=== PATIENT | male | born 1945 | race Caucasian/White ===

== ENCOUNTER 2017-05-12 00:35 | Inpatient (IN) | payer MEDICARE ==
[2017-05-12] MEDS ORDERED: SODIUM CHLORIDE 0.9% (FLUSH) 10 ML SYG IV PRN (00:54)
[2017-05-12] MEDS ORDERED: IPRATROPIUM/ALBUTEROL 3 ML VIAL NEB ONE ×2 (00:55→04:26)
--- NOTE | 2017-05-12 01:13 | RAD ---
EXAM: Single view chest. INDICATION: Trouble breathing. COMPARISON: Chest x-ray: None. FINDINGS: There are diffuse interstitial and airspace opacities. The heart is at the upper limit of normal in size. There is no pneumothorax. Small pleural effusions may be present. An aortic stent graft is noted. IMPRESSION: Diffuse interstitial and airspace opacities, likely representing pulmonary edema and/or pneumonia Electronically signed by: Denis Santamaria MD 05/12/2017 1:11 AM CDT Workstation: [id number]
[2017-05-12] MEDS ORDERED: methylPREDNISolone SODIUM SUC 125 MG/2 ML VIAL IV ONE (01:22)
[2017-05-12] MEDS ORDERED: SODIUM CHLORIDE 0.9% 1000ML 1,000 ML ONE (02:49)
[2017-05-12] MEDS ORDERED: SODIUM CHLORIDE 0.9% 1000ML 1,000 ML IVS ONE (02:54)
--- NOTE | 2017-05-12 04:01 | CT ---
EXAM: CT chest angiogram with contrast. INDICATION: Difficulty breathing. TECHNIQUE: Contiguous axial CT images of the chest. Intravenous contrast: Present. Protocol: Pulmonary embolus (PE) protocol angiogram. Reformats: MIPs and MPRs created and utilized. This exam was performed according to our departmental dose-optimization program, which includes automated exposure control, adjustment of the mA and/or kV according to patient size and/or use of iterative reconstruction technique. Note: LV=left ventricle. RV=right ventricle. COMPARISON: None. FINDINGS: Upper abdomen: Partially imaged. There is a partially visualized hypodense mass measuring 4.5 x 5.5 cm with peripheral and internal calcifications just posterior to the IVC. Thoracic aorta: A stent graft is noted within the descending thoracic aorta. Heart: No right atrial thrombus. RV/LV ratio: Within normal limits. Pulmonary arteries: Technical: Adequate opacification to the level of the segmental vessels. Pulmonary embolus: No low-density filling defect to suggest acute PE. Overall embolic burden: None. Mediastinum: No pathologic sized middle mediastinal lymphadenopathy. Tracheobronchial tree: Unremarkable. Lungs: Lobar consolidation: There are diffuse and patchy groundglass opacities with interstitial thickening. Pleural effusion: Negative. Pneumothorax: Negative. Other: Negative. Bones: Unremarkable. IMPRESSION: 1. No CT evidence of acute PE. 2. Diffuse and patchy groundglass opacities with interstitial thickening, likely representing pulmonary edema and/or pneumonia. 3. Coronary artery disease. 4. Partially visualized hypodense mass with peripheral and internal calcifications just posterior to the IVC and to the right of the abdominal aorta. Further evaluation with a dedicated CT of the abdomen and pelvis may be useful. Electronically signed by: Denis Santamaria MD 05/12/2017 3:59 AM CDT Workstation: [id number]
--- NOTE | 2017-05-12 04:10 | ED.PDOC ---
History of Present Illness - General Chief Complaint: Respiratory Problem Stated Complaint: trouble breathing, asthma Time Seen by Provider: 05/12/17 01:21 Source: patient, RN notes reviewed, family - Exam Limitations: no limitations - History of Present Illness Timing/Duration: 1-3 hours Severity: moderate Activities at Onset: rest Possible Cause: occasional episodes Worsening Factors: nothing Associated Symptoms: denies symptoms Respiratory Risk Factors: other - history of asthma Allergies/Adverse Reactions: Allergies NO KNOWN ALLERGY Allergy (Verified 05/12/17 00:51) Review of Systems - Review of Systems Constitutional: States: no symptoms reported EENTM: States: no symptoms reported Respiratory: States: see HPI Cardiology: States: no symptoms reported Gastrointestinal/Abdominal: States: no symptoms reported Genitourinary: States: no symptoms reported Musculoskeletal: States: no symptoms reported Skin: States: no symptoms reported Neurological: States: no symptoms reported Endocrine: States: no symptoms reported Past Medical History (General) - Patient Medical History Hx Asthma: Yes Hx Cardiac Disorders: Yes - stents, aneurysm, a-fib, aflutter Hx Congestive Heart Failure: No Hx Hypertension: Yes Hx Cancer: Yes - Ear Surgical History: other - foot surgery ,stent placement thoracic aorta - Vaccination History Hx Tetanus, Diphtheria Vaccination: No Hx Influenza Vaccination: No Hx Pneumococcal Vaccination: No - Social History Hx Tobacco Use: Yes Hx Alcohol Use: No - Female History Patient is a Female of Child Bearing Age (10 -59 yrs old): No Patient : No Family Medical History - Family History Mother Family History: Unknown Hx Family Asthma: Yes - COPD-DAD Hx Family;Other: copd -dad Physical Exam - Physical Exam General Appearance: Alert, Anxious, No apparent distress Eyes, Ears, Nose, Throat Exam: PERRL/EOMI, normal ENT inspection, TMs normal Neck: non-tender, full range of motion, normal inspection Respiratory: chest non-tender, decreased breath sounds, rhonchi Cardiovascular/Chest: normal peripheral pulses, regular rate, rhythm, no murmur Peripheral Pulses: radial,right: 1+, radial,left: 1+ Gastrointestinal/Abdominal: normal bowel sounds, non tender, soft, no organomegaly Extremity: normal range of motion, non-tender, no calf tenderness, pedal edema - 1 + Neurologic: alert, normal mood/affect, oriented x 3 Skin Exam: normal color, warm/dry Lymphatic: no adenopathy Progress - Progress Progress: 05/12/17 04:21 Vital Signs - 8 hr 05/12/17 05/12/17 05/12/17 00:51 01:00 01:46 Temperature 98.7 F Pulse Rate 95 H Pulse Rate [ 101 H 101 H left] Respiratory 26 H 26 H 32 H Rate Blood Pressure 87/63 [left] O2 Sat by Pulse 83 L 87 L Oximetry 05/12/17 05/12/17 05/12/17 02:00 02:45 03:10 Temperature 98.7 F 98.7 F Pulse Rate 95 H 95 H 95 H Pulse Rate [ 70 76 70 left] Respiratory 32 H 32 H 32 H Rate Blood Pressure 105/67 82/58 103/55 [left] O2 Sat by Pulse 92 L 91 L 92 L Oximetry 05/12/17 03:50 Temperature Pulse Rate 75 Pulse Rate [ 76 left] Respiratory 32 H Rate Blood Pressure 111/65 [left] O2 Sat by Pulse 93 L Oximetry 05/12/17 00:54 IV Care:Saline Lock per Protoc QSHIFT Telemetry .ONCE Sodium Chloride 0.9% (Flush) [Saline Flush Syringe] 10 ml IV PRN PRN EKG Assessment ONCE EKG Stat Pulse Ox Stat Pulse Oximetry Assessment DAILY 05/12/17 00:56 SVN/Updraft Therapy .PRN 05/12/17 02:54 Arterial Blood Gas Stat Laboratory Results - last 24 hr 05/12/17 05/12/17 00:55 00:55 WBC 8.4 RBC 4.96 Hgb 15.4 Hct 48.4 MCV 97.6 H MCH 31.1 H MCHC 31.9 L RDW 14.2 Plt Count 189 MPV 9.8 Absolute Neuts (auto) 7.40 H Absolute Lymphs (auto) 0.70 L Absolute Monos (auto) 0.10 L Absolute Eos (auto) 0.10 Absolute Basos (auto) 0.10 Neutrophils % 88.1 H Lymphocytes % 8.7 L Monocytes % 1.2 L Eosinophils % 1.3 Basophils % 0.7 PT 19.0 H INR 1.690 PTT (SP) 34.1 D-Dimer, Quantitative > 1050 H* Sodium 138 Potassium 4.4 Chloride 99 L Carbon Dioxide 30 Anion Gap 13.4 BUN 10 Creatinine 0.83 BUN/Creatinine Ratio 12.0 Random Glucose 129 H Serum Osmolality 276.4 Calcium 8.8 Magnesium 1.4 L Creatine Kinase 115 CK-MB (CK-2) 2.8 CK-MB (CK-2) % Not Reportable Troponin I < 0.02 B-Natriuretic Peptide 32.2 - EKG/XRAY/CT EKG: Sinus, nonspecific ST T wave Chg - inferior leads Comments: heart rate-88,RAD XRAY: chest - diffuse interstitial opacities CT: hypodense mass just posterior to ivc and right abd aorta CT Ordered: Yes - CTA-no PE;diffuse ground papa opacities; Departure - Departure Clinical Impression: Dyspnea and respiratory abnormality, Elevated d-dimer Pneumonia, unspecified organism Qualifiers: Pneumonia type: due to unspecified organism Laterality: bilateral Lung location : unspecified part of lung Qualified Code(s): J18.9 - Pneumonia, unspecified organism Time of Disposition: 05:07 - D/W Kris Yadav -ANP/Hospitalist Disposition: Admit Patient Condition: Fair Departure Forms: Patient Portal Self Enrollment Decision To Admit - Decistion To Admit Decision to Admit Reason: Admit from ER Decision to Admit Date: 05/12/17 Decision to Admit Time: 05:08
[2017-05-12] MEDS ORDERED: AZITHROMYCIN IV 500 MG in SODIUM CHLORIDE 0.9% 250ML 250 ML IVPB ONE (05:08)
[2017-05-12] MEDS ORDERED: cefTRIAXone SODIUM 1 GM in SODIUM CHL 0.9% 50ML MIN-BAG+ 50 ML IVPB ONE (05:08)
[2017-05-12] MEDS ORDERED: MAGNESIUM SULFATE PREMIX 2GM 2 GM in PREMIX BAG 1 BAG IVPB ONE ×2 (05:09→16:39)
[2017-05-12] MEDS ORDERED: SODIUM CHL 0.9% 50ML MIN-BAG+ 50 ML IVPB ONE ×2 (05:32→16:46)
[2017-05-12] MEDS ORDERED: cefTRIAXone SODIUM 1 GM VIAL ONE ×2 (05:32→16:46)
[2017-05-12] MEDS ORDERED: SODIUM CHLORIDE 0.9% 250ML 250 ML ONE (05:35)
[2017-05-12] MEDS ORDERED: AZITHROMYCIN IV 500 MG VIAL IVPB ONE (05:35)
--- NOTE | 2017-05-12 06:23 | HP ---
SUPERVISING PHYSICIAN: Lnadon Fuentes MD CHIEF COMPLAINT: Shortness of breath, coughing and nausea with vomiting. HISTORY OF PRESENT ILLNESS: This is a 71-year-old male patient who has noticed that over the last few weeks he has had an increase in coughing with associated shortness of breath. He does have a history of asthma and yesterday, he and his went to [place] and during his return to [place], he said he had some shortness of breath and coughing while he was en route. Once he got home, it worsened and he also with coughing he was having some nausea with vomiting and he was vomiting up a watery like substance. His shortness of breath worsened to the point that he came to the Emergency Room. In the Emergency Room , his chest x-ray per radiologic interpretation showed diffuse interstitial airspace opacities, likely representing pulmonary edema and/or pneumonia. His D -dimer was 1050, so CTA of the chest was done and per radiologic interpretation showed no CT evidence of an acute pulmonary embolism; Diffuse and patchy ground glass opacities with interstitial thickening, likely representing pulmonary edema and/or pneumonia; Coronary artery disease; Partially visualized hypodense mass with peripheral and internal calcifications just posterior to the inferior vena cava and to the right of the abdominal aorta. Further evaluation with a dedicated CT of the abdomen and pelvis may be useful. WBC 8.4, hemoglobin 15.4 , hematocrit 48.4, neutrophils high at 81.1%. INR 1.69, chloride 99, glucose 129, magnesium 1.4. On blood gas, he had a PCO2 55, PO2 70, ABG 7.32, oxygen saturation 92%. He was admitted to the hospital for pneumonia and exacerbation of his asthma as well as elevated D-dimer. PAST MEDICAL HISTORY: It is to be noted that the patient is a poor historian and is difficult to understand. 1. Coronary artery disease. 2. Asthma. 3. Gastroesophageal reflux disease. 4. Hypertension. 5. Hyperlipidemia. 6. Cardiac arrhythmias. PAST SURGICAL HISTORY: 1. Stents to bilateral descending aortas 2 to 3 years ago. 2. Hip replacement. 3. Ankle surgery. 4. Hemorrhoidectomy. OUTPATIENT MEDICATIONS: Per the EMR and awaiting verification. ALLERGIES: NO KNOWN DRUG ALLERGIES. SOCIAL HISTORY: He is . He lives in [place]. He quit smoking and quit drinking approximately 13 years ago. Prior to that, he smoked about 1 pack of cigarettes daily for many years. He denies any illicit drug use. REVIEW OF SYSTEMS: GENERAL: Positive for fatigue. Negative for fever or weight changes. HEENT: Positive for sinus symptoms, sneezing, runny nose. Negative for ear pain, vision changes or sore throat. RESPIRATORY: As per history of present illness. CARDIAC: Denies chest pain, palpitations or tachycardia. GASTROINTESTINAL: As per history of present illness. Denies constipation or diarrhea. GENITOURINARY: Denies hematuria, dysuria or polyuria. NEUROLOGIC: Denies headache, dizziness, or seizures. SKIN: Denies lesions or rashes. PHYSICAL EXAMINATION: VITAL SIGNS: Afebrile. Heart rate 65. Blood pressure 112/65. Respiratory rate 18. O2 saturation dropped as low as 83% in the Emergency Room and is now about 91% to 93%. GENERAL: This is a 71-year-old, obese, male patient who is lying in his hospital bed. HEENT: Normocephalic, atraumatic. Pupils are equal and reactive. He has rhinorrhea and sneezing. Oropharynx is clear. NECK: Supple without mass. RESPIRATORY: Bibasilar crackles throughout. CHEST: There is equal rise and fall of the chest with inspiration and expiration. CARDIOVASCULAR: Regular rate and rhythm. ABDOMEN: Soft, nondistended, nontender. Bowel sounds are positive. EXTREMITIES: No cyanosis or clubbing. There is trace pedal edema. NEUROLOGIC: Awake, alert and oriented times three, but he is very difficult to understand as he mumbles most of his answers. LABORATORY AND FILMS: As per history of present illness with the exception of bilateral lower extremity ultrasound which shows no evidence of thrombosis or embolism. ASSESSMENT: 1. Bibasilar pneumonia, community acquired, versus nonspecific interstitial pneumonia. 2. Acute exacerbation of asthma, presently only on a short-acting bronchodilator. 3. History of arrhythmias, on Coumadin with a subtherapeutic INR. 4. History of cardiac arrhythmias. 5. Coronary artery disease. 6. Abdominal pain with mild nausea, now resolved. 7. Hypomagnesemia. PLAN: We will admit the patient to the hospital. He is presently on Zithromax and Rocephin. He will need a pulmonary consult at some point to evaluate the ground glass opacities per the CT. I will start him on an inhaled corticosteroid and LAVA. We will monitor his rhythms closely. I have also ordered a PT/INR for in the morning and we will attempt to get his INR therapeutic on Coumadin. He is on Protonix for ulcer prophylaxis. He has received 2 grams of magnesium and I am going to recheck his magnesium level today as well as his routine labs in the morning. Blood sugars were slightly elevated and I will check a hemoglobin A1c. He has also been placed on IV steroids and we need to start sliding scale insulin to cover his elevated blood sugars due to the steroids. Probably on Monday we will need pulmonary function tests as well as ambulation study. I have also ordered a CT of the abdomen and pelvis to be done in the recommended as recommended by the chest CTA. Otherwise , we will continue to monitor the patient closely and followup as needed. Dr. Fuentes is the collaborating physician and available for consultation. #[id number] [facility]
[2017-05-12] MEDS ORDERED: MAGNESIUM SULFATE PREMIX 2GM 50 ML IVPB ONE ×2 (07:32→16:57)
[2017-05-12] MEDS ORDERED: ACETAMINOPHEN 325 MG TAB PO PRN (07:34)
[2017-05-12] MEDS ORDERED: ALBUTEROL SULFATE 2.5 MG/3 ML VIAL NEB PRN (07:34)
[2017-05-12] MEDS ORDERED: MAGNESIUM HYDROXIDE 30 ML UD PO PRN (07:34)
[2017-05-12] MEDS ORDERED: ONDANSETRON INJ 4 MG/2 ML VIAL IV PRN (07:34)
[2017-05-12] MEDS ORDERED: IV SET AND CAP CHANGE INJ INJ SCH (08:00)
[2017-05-12] MEDS: IPRATROPIUM/ALBUTEROL 3 ML VIAL INH SCH ×4 (08:23→20:10)
[2017-05-12] MEDS: PANTOPRAZOLE SODIUM IV 40 MG VIAL IV SCH (08:32)
[2017-05-12] MEDS: methylPREDNISolone SODIUM SUC 125 MG/2 ML VIAL IV SCH ×3 (08:37→20:01)
[2017-05-12] MEDS: SODIUM CHLORIDE 0.9% (FLUSH) 10 ML SYG IV SCH ×2 (08:37→20:02)
[2017-05-12] MEDS ORDERED: ALUMINUM & MAGNESIUM HYDROXIDE 30 ML UD PO PRN (12:49)
--- NOTE | 2017-05-12 12:51 | US ---
EXAM DESCRIPTION: Venous, lower Extremity LT CLINICAL HISTORY: elevated d-dimer with SOB COMPARISON: Two -dimensional and doppler sonographic evaluation of the deep venous system of the right lower extremity. Chest x-ray also on this visit. TECHNIQUE: Two -dimensional and doppler sonographic evaluation of the deep venous system of the left lower extremity. FINDINGS: Doppler evaluation shows normal color flow and normal phasicity and augmentation of the left common femoral vein, femoral vein, popliteal vein, greater saphenous vein, peroneal, and posterior tibial vein. The left lower extremity deep veins showed normal occlusion with transducer pressure. Two-dimensional survey showed no echogenic thrombus within these veins. IMPRESSION: 1. Duplex ultrasound evaluation of the left lower extremity deep venous system showing no evidence of thrombosis or embolism. Electronically signed by: Pasquale Persaud MD 05/12/2017 12:50 PM CDT Workstation: [email or web address]
--- NOTE | 2017-05-12 12:59 | US ---
EXAM DESCRIPTION: Venous, lower Extremity RT CLINICAL HISTORY: elevated d-dimer with SOB COMPARISON: Two -dimensional and doppler sonographic evaluation of the deep venous system of the left lower extremity. Portable chest x-ray also on this visit. TECHNIQUE: Two -dimensional and doppler sonographic evaluation of the deep venous system of the right lower extremity. The images are labeled "left". FINDINGS: Doppler evaluation shows normal color flow and normal phasicity and augmentation of the right common femoral vein, femoral vein, popliteal vein, greater saphenous vein, peroneal, and posterior tibial vein. The right lower extremity deep veins showed normal occlusion with transducer pressure. Two-dimensional survey showed no echogenic thrombus within these veins. IMPRESSION: 1. Duplex ultrasound evaluation of the right lower extremity deep venous system showing no evidence of thrombosis or embolism. Electronically signed by: Pasquale Persaud MD 05/12/2017 12:57 PM CDT Workstation: [email or web address]
[2017-05-12] MEDS ORDERED: LISINOPRIL 30 MG PO SCH (13:00)
[2017-05-12] MEDS ORDERED: AMIODARONE HCL 100 MG PO SCH (13:00)
[2017-05-12] MEDS: WARFARIN SODIUM 5 MG TAB PO SCH (13:20)
[2017-05-12] MEDS: LISINOPRIL 10 MG TAB PO SCH (13:20)
[2017-05-12] MEDS: AMIODARONE HCL 200 MG TAB PO SCH (13:20)
--- NOTE | 2017-05-12 14:01 | PCM.CORE ---
Physician DVT/VTE - Prophylaxis Currently: Patient already on anticoagulation therapy - Nurse DVT Assessment & Total Each Risk Factor Represents 2 Points: Age 60-74 Each Risk Factor Represents 1 Point: Medical PT at Bed Rest Each Risk Factor is 1 Point: Varicose Veins/Edema Legs, Obesity (BMI >25) DVT Assessment Score: 5 - 5 or more Very High Risk Treatments: Early Ambulation *, Sequential Compression Device
[2017-05-12] MEDS: SODIUM CHLORIDE 0.9% (FLUSH) 10 ML SYG IV PRN (14:20)
[2017-05-12] MEDS: cefTRIAXone SODIUM 1 GM in SODIUM CHL 0.9% 50ML MIN-BAG+ 50 ML IVPB SCH (16:49)
[2017-05-12] MEDS: TEMAZEPAM 15 MG CAP PO PRN (21:16)
[2017-05-13] MEDS ORDERED: SODIUM CHL 0.9% 50ML MIN-BAG+ 0 ML IVPB ONE (03:57)
[2017-05-13] MEDS ORDERED: cefTRIAXone SODIUM 1 GM VIAL ONE ×3 (03:57→19:03)
[2017-05-13] MEDS ORDERED: AZITHROMYCIN IV 500 MG in SODIUM CHLORIDE 0.9% 250ML 250 ML IVPB SCH (04:00)
[2017-05-13] MEDS: cefTRIAXone SODIUM 1 GM in SODIUM CHL 0.9% 50ML MIN-BAG+ 50 ML IVPB SCH ×2 (04:04→17:32)
[2017-05-13] MEDS ORDERED: SODIUM CHLORIDE 0.9% 250ML 0 ML ONE (04:49)
[2017-05-13] MEDS ORDERED: AZITHROMYCIN IV 500 MG VIAL IVPB ONE ×2 (04:50→19:03)
[2017-05-13] MEDS ORDERED: cefTRIAXone SODIUM 1 GM in SODIUM CHL 0.9% 50ML MIN-BAG+ 50 ML IVPB SCH (05:00)
[2017-05-13] MEDS ORDERED: SIMVASTATIN 10 MG TAB PO ONE (07:35)
[2017-05-13] MEDS ORDERED: PROPRANOLOL HCL 20 MG TAB ONE (07:36)
--- NOTE | 2017-05-13 07:53 | CT ---
EXAM: CT abdomen and pelvis without contrast. INDICATION: Mass. TECHNIQUE: Contiguous axial CT images of the abdomen and pelvis. Intravenous contrast: Absent. Oral contrast: Absent. DLP 810 mGy-cm. This exam was performed according to our departmental dose-optimization program, which includes automated exposure control, adjustment of the mA and/or kV according to patient size and/or use of iterative reconstruction technique. COMPARISON: CT chest dated 05/12/2017. FINDINGS: Lower chest: Partially imaged. Lung bases: There are groundglass opacities with interstitial thickening along the lung bases Cardiac apex: Unremarkable. Solid abdominal viscera: Limited by lack of intravenous contrast. Liver: Unremarkable. Gallbladder: Unremarkable. Pancreas: Unremarkable. Spleen: Unremarkable. Adrenal glands: Unremarkable. Right kidney: No urolithiasis or hydronephrosis. Left kidney: No urolithiasis or hydronephrosis. Urinary bladder: Unremarkable. Abdominal aorta: The previously described cystic mass posterior to the IVC is an abdominal aortic aneurysm. The aneurysm measures up to 5.3 x 7.6 cm with an aortobiiliac stent graft in place. Peritoneal: Free fluid: None. Free air: None. Other: No pathologic sized lymph nodes in the upper abdomen. Bowel: Stomach: Unremarkable. Small bowel: Unremarkable. Appendix: Not uniquely identified Colon: Unremarkable. Rectum: Unremarkable. Prostate: Unremarkable. Bones: There are changes of a left hip arthroplasty IMPRESSION: The mass described on the prior CT chest that was posterior to the IVC is an abdominal aortic aneurysm which measures up to 5.3 x 7.6 cm. Vascular surgery consultation is recommended. An aortobiiliac stent graft is in place. Electronically signed by: Denis Santamaria MD 05/13/2017 7:52 AM CDT Workstation: [employer]
[2017-05-13] MEDS: PANTOPRAZOLE SODIUM IV 40 MG VIAL IV SCH (08:08)
[2017-05-13] MEDS: AMIODARONE HCL 200 MG TAB PO SCH (08:11)
[2017-05-13] MEDS: LISINOPRIL 10 MG TAB PO SCH (08:12)
[2017-05-13] MEDS: SODIUM CHLORIDE 0.9% (FLUSH) 10 ML SYG IV SCH ×2 (08:14→21:00)
[2017-05-13] MEDS: IPRATROPIUM/ALBUTEROL 3 ML VIAL INH SCH ×3 (08:46→16:40)
[2017-05-13] MEDS ORDERED: SIMVASTATIN 10 MG TAB PO SCH (09:00)
[2017-05-13] MEDS ORDERED: PROPRANOLOL HCL 20 MG TAB PO SCH (09:00)
[2017-05-13] MEDS ORDERED: SODIUM CHLORIDE 0.9% 1000ML 1,000 ML IVS PRN (09:24)
[2017-05-13] MEDS: FLUTICASONE/SALMETEROL 250/50 14 PUFF/17 GM INH INH SCH ×2 (10:40→19:46)
[2017-05-13] MEDS: methylPREDNISolone SODIUM SUC 125 MG/2 ML VIAL IV SCH ×2 (11:01→17:33)
--- NOTE | 2017-05-13 11:44 | PN ---
DATE: 05/13/17 SUPERVISING PHYSICIAN: Kj Wiseman M.D. SUBJECTIVE: The patient is sitting up in his hospital bed. His is at bedside. He states he has had bloody sputum times 2 over the last 24 hours. He has not had that before. We discussed at length his CAT scan results, both his CTA of the chest and his CT of the abdomen. His son was also at bedside and they understand that he will have to have close pulmonary followup as well as a vascular followup for his aortic aneurysm. He has no complaints of chest pain or abdominal pain, nausea or vomiting, but he did complain of shortness of breath with exertion and a hacking cough. OBJECTIVE: VITAL SIGNS: He is afebrile, heart rate 80, blood pressure 147/65, respiratory rate 18, O2 sat is 92% at rest on 4 liters nasal cannula. He has desatted to 86 to 88% with any exertion. RESPIRATORY: Bibasilar crackles throughout with a few scattered rhonchi. No wheezing noted. CARDIAC: Regular rate and rhythm. ABDOMEN: Rounded. It is soft, non-tender. Bowel sounds are positive. EXTREMITIES: There is a trace of edema to his lower extremities. His bilateral pedal pulses are palpable. NEUROLOGIC: He is awake, alert and oriented times three. LABORATORY: WBC is 10.6, hemoglobin 12.6 and 39.9 which is a drop from yesterday at 15.4 and 48.4. Platelets are 122. INR is now therapeutic at 2.2. Sodium 139, potassium 4.6, chloride 98, carbon dioxide 32, BUN 23, creatinine .133 which is up from 0.83 yesterday, glucose 144. AST 56, ALT 40, alkaline phosphatase 29. Sputum culture is pending. Abdomen and pelvis CT per radiology interpretation says a mass described on the prior CT of the chest that was posterior to the IVC is an abdominal aortic aneurysm which measures up to 5.3 cm times 7.6 cm. Vascular Surgery consultation is recommended. An aortobiiliac stent graft is in place. Chest x-ray is slightly improved from yesterday but still shows interstitial and airspace opacities. All other labs and films have been reviewed via the EMR. ASSESSMENT: 1. Bibasilar pneumonia most likely community acquired versus nonspecific interstitial pneumonia. CTA of the chest shows bibasilar ground glass opacities. 2. New onset of bloody sputum. Sputum culture pending. May be due to his Coumadin therapy, although he has been on Coumadin and states that he has been taking his Coumadin on a regular basis. 3. Acute exacerbation of chronic asthma presently only on a short-acting bronchodilator. 4. History of arrhythmias on Coumadin with a therapeutic INR today. 5. History of cardiac arrhythmias including atrial fibrillation. 6. History of bilateral abdominal aortic aneurysm with stent placement and presently shows a 5.3 x 7.6 cm abdominal aortic aneurysm with stent per CT scan. 7. Abdominal pain with mild nausea that has now resolved. 8. Hypomagnesemia that has now resolved. 9. Renal insufficiency may be likely to dehydration. 10. Mild thrombocytopenia. PLAN: We will continue present supportive care. I will recheck his labs in the morning. I have also ordered a sputum culture on his bloody sputum sample. I have continued his Solu-Medrol but I decreased the dose slightly. I will give him some judicious IV fluids. Hopefully it will improve his renal function. I have also started him on Advair. He will need a very close pulmonary consultation on discharge as well as a followup with his vascular surgeon as I have no CT to compare his abdominal aortic aneurysm to at this time. His primary care physician is Dr. Rupinder Steel in [place]. If we are unable to get a pulmonary consultation, she will need to get a close followup for him. I will hold off on his PFT and ambulation study until tomorrow as he desats very quickly with any exertion at this time. We will continue present antibiotic therapy and monitor the patient closely and followup as needed. #[id number] [facility]
[2017-05-13] MEDS: WARFARIN SODIUM 5 MG TAB PO SCH (12:36)
[2017-05-13] MEDS ORDERED: SODIUM CHL 0.9% 50ML MIN-BAG+ 50 ML IVPB ONE ×2 (17:21→19:02)
[2017-05-13] MEDS ORDERED: SODIUM CHLORIDE 0.9% 250ML 250 ML ONE (19:02)
[2017-05-13] MEDS: TEMAZEPAM 15 MG CAP PO PRN (21:00)
[2017-05-13] MEDS ORDERED: cloNIDine HCL 0.1 MG TAB PO ONE (21:59)
[2017-05-13] MEDS ORDERED: cloNIDine HCL 0.1 MG TAB ONE (21:59)
[2017-05-13] MEDS ORDERED: FUROSEMIDE INJ 20 MG/2 ML VIAL ONE (22:19)
[2017-05-13] MEDS ORDERED: FUROSEMIDE INJ 20 MG/2 ML VIAL IV ONE (22:19)
[2017-05-13] MEDS: SODIUM CHLORIDE 0.9% (FLUSH) 10 ML SYG IV PRN (22:22)
[2017-05-13 23:03] VITALS: BP 168/74; TEMP 99; O2SAT 96
--- NOTE | 2017-05-14 11:55 | DS ---
SUPERVISING PHYSICIAN: Kj Wiseman M.D. DISCHARGE DIAGNOSIS: 1. Respiratory distress and hypoxia due to worsening bibasilar pneumonia. 2. Bibasilar pneumonia most likely community acquired versus nonspecific interstitial pneumonia. His CT of the chest shows bibasilar ground glass opacities. 3. New onset of bloody sputum. Sputum culture is pending. 4. Acute exacerbation of chronic asthma presently only on a short acting broncho- dilator but has been recently started on LABA and an inhaled corticosteroid. 5. History of atrial fibrillation on Coumadin with a therapeutic INR of 2.2. 6. History of abdominal aortic aneurysm with stent placement. He presently has an aneurysm of 5.3 x 7[address] scan. 7. Abdominal pain with mild nausea that has now resolved. 8. Hypomagnesemia that has now resolved. 9. Renal insufficiency that may be due to dehydration. 10. Mild thrombocytopenia. HISTORY OF PRESENT ILLNESS: This is a 71 year-old male patient who presented to the Emergency Room on date of admission due to a 1 month history of shortness of breath and cough. Several days prior to admission, the shortness of breath worsened to the point that he had his bring him to the Emergency Room. In the Emergency Room, his chest x-ray per radiology interpretation showed diffuse interstitial air-space opacities likely representing pulmonary edema or pneumonia. His D-dimer was [address] of the chest was done and per radiology interpretation showed no CT evidence of an acute pulmonary embolism, but he had diffuse and patchy ground glass opacities with interstitial thickening likely representing pulmonary edema and/or pneumonia. It also showed coronary artery disease. There was a partially visualized hypodense mass with peripheral and internal calcification just posterior to the inferior vena cava to the right of the abdominal aorta. They recommended further evaluation with a dedicated CT of the abdomen and pelvis. His white count was 8.4, hemoglobin 15.4, hematocrit 48.4, neutrophils were high at 81.1%. His INR was 1.69, chloride 99, glucose 129, magnesium 1.4. Blood gas showed a PCO2 of 55, PO2 of 70, pH of 7.32 with an oxygen saturation of 92. Oxygen saturation dropped as low as the low 80s in the Emergency Room. He was also given Zithromax and Rocephin as well as high dose steroids as well as breathing treatments, and he was admitted to the floor. Initially he responded well to treatment and his oxygen saturations actually went up into the mid to upper 90s , but in the last 12 hours he has required increased oxygenation with his oxygen up to 5 to 6 liters per minute. Just getting up to the side of the bed, he desatted to the mid 80s and took 10 to 15 minutes to recover back to the low 90s. In spite of aggressive therapy, including antibiotics, breathing treatments, the addition of LABA and an inhaled corticosteroid as well as IV steroids, the patient's condition has worsened. It was decided that he needed a pulmonary consultation as well as further evaluation of the abdominal aortic aneurysm and per family's request they wanted him to go to [facility] where his stents were placed in [address] Dr. Bermudez, hospitalist at [facility], accepted the patient for transfer. DISCHARGE PLAN: The patient will be sent via [facility] to [facility]. Dr. Bermudez is the accepting physician. He will be discharged with all of his records, including CDs of his radiology reports here. I have discussed the transfer at length with his family. Dr. Wiseman has also been included in the discussions with family as well as his assembler carbon brushes, Dr. Segundo in [place]. He will be discharged in fair condition. Vital signs at this time, he is afebrile , pulse rate 60, blood pressure 154/84, respiratory rate 19, O2 sat is 92% on 5 liters nasal cannula. DISCHARGE MEDICATIONS: 1. Warfarin. 2. Simvastatin. 3. Propranolol. 4. Lisinopril. 5. Amiodarone. 6. Gabapentin. 7. Albuterol nebs. His hospital medications to be continued are: 1. Azithromycin. 2. Ceftriaxone. 3. Advair 250/50. 4. DuoNeb. 5. Methylpred[address]one. Dr. Wiseman is the collaborating physician and available for consultation. #[id number] [facility]
== END 2017-05-13 22:30 | disposition short-term general hospital (02) | DRG 194 ==
LOC: ER 00:35 → OBSVTOIN 06:22 → MS 06:22
PROVIDERS: ADMIT Nurse Practitioner Acute Care; ATTEND Nurse Practitioner Acute Care
PROC: B32TYZZ Computerized Tomography (CT Scan) of Left Pulmonary Artery using Other Contrast (ICD-10-PCS; principal; 2017-05-12)
PROC: B32SYZZ Computerized Tomography (CT Scan) of Right Pulmonary Artery using Other Contrast (ICD-10-PCS; 2017-05-12)
DX: J18.9 Pneumonia, unspecified organism (principal); J45.901 Unspecified asthma with (acute) exacerbation; R04.2 Hemoptysis; E66.9 Obesity, unspecified; I48.91 Unspecified atrial fibrillation; I71.4 Abdominal aortic aneurysm, without rupture; E83.42 Hypomagnesemia; N28.9 Disorder of kidney and ureter, unspecified; D69.6 Thrombocytopenia, unspecified; R79.89 Other specified abnormal findings of blood chemistry; I25.10 Atherosclerotic heart disease of native coronary artery without angina pectoris; K21.9 Gastro-esophageal reflux disease without esophagitis; I10 Essential (primary) hypertension; E78.5 Hyperlipidemia, unspecified; E86.0 Dehydration; R79.1 Abnormal coagulation profile; R09.02 Hypoxemia; Z79.51 Long term (current) use of inhaled steroids; Z79.01 Long term (current) use of anticoagulants; Z79.899 Other long term (current) drug therapy; Z87.891 Personal history of nicotine dependence; Z96.642 Presence of left artificial hip joint; Z95.828 Presence of other vascular implants and grafts; Z68.34 Body mass index [BMI] 34.0-34.9, adult

== ENCOUNTER → 2017-11-14 | Outpatient (CLI) | payer MEDICARE | LOC: SL 20:09 | PROVIDERS: ATTEND Internal Medicine Pulmonary Disease | DX: G47.30 Sleep apnea, unspecified (principal) ==